=== PATIENT | male | born 1995 | race Two or more races ===

== ENCOUNTER 2021-02-20 03:47 | Emergency (ER) | payer OTHER ==
[~2021-02-20] VITALS: Ht 177.8 cm; Wt 79.4 kg
[2021-02-20] MEDS ORDERED: NASAL MIST126 ML (05:30)
[2021-02-20] MEDS ORDERED: KETO10TA2 PO (05:31)
== END 2021-02-20 05:37 | disposition home or self-care (01) ==
LOC: ER 03:47
DX: R07.89 Other chest pain (principal); M94.0 Chondrocostal junction syndrome [Tietze]